=== PATIENT | male | born 1955 | race Caucasian/White ===

== ENCOUNTER 2020-11-01 16:43 | Emergency (ER) | payer OTHER ==
--- NOTE | 2020-11-01 17:03 | EDM.PDOC ---
<Martin Monterroso - Last Filed: 11/01/20 19:00> ED HPI GENERAL MEDICAL PROBLEM - General Chief Complaint: Respiratory Problem Stated Complaint[facility] Time Seen by Provider: 11/01/20 16:56 Source of Information: Reports: Patient History Limitations: Reports: No Limitations - History of Present Illness INITIAL COMMENTS - FREE TEXT/NARRATIVE: 65-year-old male with history of COPD, chronic smoker presents for shortness of breath, hemoptysis, dyspnea on exertion over the past 3 months. He also notes nonpainful bilateral lower extremity swelling over the past [address] chest noncontrast performed on 10/29 demonstrating pulmonary mass. Associated symptoms include cough. He denies fever, chills, weight loss, sweats, chest pain, abdominal pain, rectal bleeding. ROS: A 10-point review of systems, other than pertinent positives and negatives as stated per HPI, is otherwise negative Past medical history: No additional pertinent history Past Surgical history: No additional pertinent history Social history: No additional pertinent history Family history: No additional pertinent history PHYSICAL EXAM General: AOx4, GCS = 15, No distress HEENT: dry mucous membrane Neck: supple, no meningismus, no Kernig or Brudzinski Cardiac: S1S2 RRR Respiratory: diminished breath sound with diffuse rales Abdomen: Soft, nontender, no rebound or guarding, nondistended, no pulsatile mass. Back: nontender Musculoskeletal: NVI distally, bilaterally LE edema nontender. Neuro: No focal deficits, CN 2 - 12 WNL. - Related Data Allergies Allergy/AdvReac Type Severity Reaction Status Date / Time No Known Allergies Allergy Verified 11/01/20 17:04 Home Meds: Home Meds Albuterol Sulfate [Albuterol Sulfate HFA] 8.5 gram .ROUTE ASDIRECTED 11/01/20 [History] Budesonide/Formoterol Fumarate [Symbicort 80-4.5 MCG] 2 puff IH 11/01/20 [History] Doxycycline [Vibramycin] 100 mg PO BID #28 tab 11/01/20 [Rx] guaiFENesin [Mucinex] 1,200 mg .ROUTE DAILY 11/01/20 [History] ED ROS GENERAL - Review of Systems Review Of Systems: See Below (see dictation) ED EXAM, GENERAL - Physical Exam Exam: See Below (see dictation) #1 Interpretation EKG Interpretation Comments: Heart rate = 82 bpm, normal sinus rhythm, normal QRS interval, no STEMI. EKG and rhythm strip interpreted by me at 1656 Course - Re-Assessments/Exams Free Text/Narrative Re-Assessment/Exam: 11/01/20 19:00 Patient signed out to Dr. Huerta for disposition, pending CTA chest result. Departure - Departure Disposition: Home, Self-Care 01 Condition: Good Clinical Impression: Pneumonia Qualifiers: Pneumonia type: due to unspecified organism Laterality: unspecified laterality Lung location: unspecified part of lung Qualified Code(s): J18.9 - Pneumonia, unspecified organism Metastatic lung carcinoma Qualifiers: Laterality: unspecified laterality Qualified Code(s): C78.00 - Secondary malignant neoplasm of unspecified lung - Discharge Information Prescriptions: Doxycycline [Vibramycin] 100 mg PO BID #28 tab Instructions: Lung Cancer, Community-Acquired Pneumonia, Adult, [id number] Referrals: PCP,Not In Area [Primary Care Provider] - Forms: ED Department Discharge Additional Instructions: You were evaluated today on an emergent basis. At this time your work-up did reveal what appears to be lung cancer with a small pneumonia. I will be starting you on antibiotics and I want you to complete the course. As discussed I would like you to follow-up with the [place] clinic within the next 1 to 2 days so that you may be connected with an oncologist for further work-up. As we discussed if you have any worsening shortness of breath or start coughing up diana blood that is not streaked or you have any chest pain please return to the emergency department. [facility] - Primary Care [address] [place] [id number] [address] [id number] The patient is informed of any results of their evaluation and diagnostic workup and all questions are answered. They are given discharge instructions and return precautions. The patient is stable for discharge. The patient states they understand and agree with the plan and that they will return if their symptoms get worse or if they have any new concerns. The following information is given to patients seen in the emergency department who are being discharged to home. This information is to outline your options for follow-up care. We provide all patients seen in our emergency department with a follow-up referral. The need for follow-up, as well as the timing and circumstances, are variable depending upon the specifics of your emergency department visit. If you don't have a primary care physician on staff, we will provide you with a referral. We always advise you to contact your personal physician following an emergency department visit to inform them of the circumstance of the visit and for follow-up with them and/or the need for any referrals to a consulting specialist. The emergency department will also refer you to a specialist when appropriate. This referral assures that you have the opportunity for follow-up care with a specialist. All of these measure are taken in an effort to provide you with optimal care, which includes your follow-up. Under all circumstances we always encourage you to contact your private physician who remains a resource for coordinating your care. When calling for follow-up care, please make the office aware that this follow-up is from your recent emergency room visit. If for any reason you are refused follow-up, please contact the [facility] Emergency Department at and asked to speak to the emergency department charge nurse. <Jerrod Huerta - Last Filed: 11/02/20 03:28> ED HPI GENERAL MEDICAL PROBLEM - History of Present Illness INITIAL COMMENTS - FREE TEXT/NARRATIVE: Patient was signed out to me by Dr. Monterroso pending CT angiogram and communication with hospitalist who is aware of the patient at 7PM On my reevaluation at signout the patient had stable vital signs. I did have a discussion with the patient about what brought him into the hospital. The patient states that he has had a cough with blood-streaked sputum. He states that he had an outpatient CT at the [place] and was sent to the emergency department given the findings. He states that he has not had any diana hemoptysis, hematemesis, or worsening shortness of breath. He states that in addition to the blood-streaked sputum he has been experiencing lower extremity swelling over the past 3 weeks. He denies any history of DVT or PE and denies any chest pain. Labs reviewed with a CBC revealing a normal hemoglobin at 14.9 and normal WBC count at 10.93 with some mild thrombocytosis at 430. D-dimer is elevated at 0.77. Coags are within normal limits. Lactic acid was 0.9. CMP revealed hypoalbuminemia otherwise unremarkable. Covid was negative. Imaging reviewed with a chest x-ray showing bilateral airspace opacities. Venous duplex studies do not reveal any evidence of DVT in the lower extremities. The radiological images were viewed by myself along with reading the report from the radiologist. CT angiogram of the chest reveals no evidence of acute pulmonary embolism. There is a right upper lobe mass consistent with lung carcinoma. There is innumerable bilateral pulmonary nodules and extensive mediastinal adenopathy. There is a right perihilar airspace opacity which may reflect additional sites of mass or infection. No hepatic mass or suspicious osseous lesion. After imaging I did contact hospitalist Dr. Galaviz and discussed the case with her. At this time the patient does not meet inpatient criteria as he has normal vital signs no evidence of sepsis or postobstructive pneumonia and overall appears well. I had a discussion with the patient regarding his CT findings. He is aware that he has lung cancer which was found on prior CT. I did discuss with him at this time that he has no evidence of DVT and that his lower extremity swelling is likely secondary to hypoalbuminemia versus dependent edema. At this time I did have a discussion with him that he needed to follow-up with oncology for staging and treatment options. [facility] I encouraged the patient to call the clinic tomorrow to make an appointment to expedite follow-up. He is to return for any new or worsening symptoms such as diana hemoptysis, worsening shortness of breath, syncope or chest pain. I did start the patient on doxycycline for the possible right perihilar pneumonia. I did send his prescription to the pharmacy. He is to complete the full course. He was amenable to discharge at this time and had no further questions. DISPOSITION: The patient was discharged home in stable condition. The patient will follow up with [place] clinic within 1 to 2 days CONDITION: Fair PROCEDURES: None FINAL IMPRESSION(S)/DIAGNOSES: 1. Subacute lower extremity edema likely secondary to dependent edema versus hypoalbuminemia 2. Subacute blood tinged sputum likely secondary to lung carcinoma Jerrod Huerta M.D. Course - Vital Signs Last Recorded V/S: Last Vital Signs Temp 36.8 C 11/01/20 16:58 Pulse 86 11/01/20 20:55 Resp 16 11/01/20 20:55 BP 138/71 11/01/20 20:55 Pulse Ox 92 L 11/01/20 20:55 - Orders/Labs/Meds Orders: Active Orders 24 hr Category Date Time Status CULTURE BLOOD [BC] Stat Lab 11/01/20 17:52 Received CULTURE BLOOD [BC] Stat Lab 11/01/20 17:57 Received PROCALCITONIN [REF] Stat Lab 11/01/20 16:00 Received Blood Culture x2 Reflex Set [OM.PC] Stat Oth 11/01/20 18:22 Ordered Labs: Laboratory Tests 11/01/20 11/01/20 11/01/20 Range/Units 16:00 16:00 16:00 WBC 10.93 (4.0-11.0) K/uL RBC 4.97 (4.50-5.90) M/uL Hgb 14.9 (13.0-17.0) g/dL Hct 44.2 (38.0-50.0) % MCV 88.9 (80.0-98.0) fL MCH 30.0 (27.0-32.0) pg MCHC 33.7 (31.0-37.0) g/dL RDW Std Deviation 46.7 (28.0-62.0) fl RDW Coeff of Yaima 15 (11.0-15.0) % Plt Count 430 H (150-400) K/uL MPV 9.60 (7.40-12.00) fL Neut % (Auto) 74.9 (48.0-80.0) % Lymph % (Auto) 11.8 L (16.0-40.0) % Hays % (Auto) 12.4 (0.0-15.0) % Eos % (Auto) 0.7 (0.0-7.0) % Baso % (Auto) 0.2 (0.0-1.5) % Neut # (Auto) 8.2 H (1.4-5.7) K/uL Lymph # (Auto) 1.3 (0.6-2.4) K/uL [place] # (Auto) 1.4 H (0.0-0.8) K/uL Eos # (Auto) 0.1 (0.0-0.7) K/uL Baso # (Auto) 0.0 (0.0-0.1) K/uL Nucleated RBC % 0.0 /100WBC Nucleated RBCs # 0 K/uL INR 1.09 APTT 28.1 (18.6-31.3) SEC D-Dimer, Quantitative 0.77 H (0.0-0.50) mg/L FEU Lactate (0.20-2.00) mmol/L Sodium 139 (136-148) mmol/L Potassium 3.7 (3.5-5.1) mmol/L Chloride 103 (98-107) mmol/L Carbon Dioxide 22.9 (21.0-32.0) mmol/L BUN 5 L (7.0-18.0) mg/dL Creatinine 0.7 L (0.8-1.3) mg/dL Est Cr Clr Drug Dosing 113.55 mL/min Estimated GFR (MDRD) > 60.0 ml/min Glucose 100 (74-106) mg/dL Calcium 8.6 (8.5-10.1) mg/dL Phosphorus 3.1 (2.6-4.7) mg/dL Magnesium 1.9 (1.8-2.4) mg/dL Total Bilirubin 0.6 (0.2-1.0) mg/dL AST 17 (15-37) IU/L ALT 19 (14-63) IU/L Alkaline Phosphatase 73 (46-116) U/L Troponin I < 0.050 (0.000-0.056) ng/mL B-Natriuretic Peptide (<100) PG/ML Total Protein 7.0 (6.4-8.2) g/dL Albumin 2.5 L (3.4-5.0) g/dL Globulin 4.5 H (2.6-4.0) g/dL Albumin/Globulin Ratio 0.6 L (0.9-1.6) SARS-CoV-2 RNA ([facility]) (NEGATIVE) 11/01/20 11/01/20 11/01/20 Range/Units 16:00 17:45 18:24 WBC (4.0-11.0) K/uL RBC (4.50-5.90) M/uL Hgb (13.0-17.0) g/dL Hct (38.0-50.0) % MCV (80.0-98.0) fL MCH (27.0-32.0) pg MCHC (31.0-37.0) g/dL RDW Std Deviation (28.0-62.0) fl RDW Coeff of Yaima (11.0-15.0) % Plt Count (150-400) K/uL MPV (7.40-12.00) fL Neut % (Auto) (48.0-80.0) % Lymph % (Auto) (16.0-40.0) % [place] % (Auto) (0.0-15.0) % Eos % (Auto) (0.0-7.0) % Baso % (Auto) (0.0-1.5) % Neut # (Auto) (1.4-5.7) K/uL Lymph # (Auto) (0.6-2.4) K/uL [place]ays # (Auto) (0.0-0.8) K/uL Eos # (Auto) (0.0-0.7) K/uL Baso # (Auto) (0.0-0.1) K/uL Nucleated RBC % /100WBC Nucleated RBCs # K/uL INR APTT (18.6-31.3) SEC D-Dimer, Quantitative (0.0-0.50) mg/L FEU Lactate 0.9 (0.20-2.00) mmol/L Sodium (136-148) mmol/L Potassium (3.5-5.1) mmol/L Chloride (98-107) mmol/L Carbon Dioxide (21.0-32.0) mmol/L BUN (7.0-18.0) mg/dL Creatinine (0.8-1.3) mg/dL Est Cr Clr Drug Dosing mL/min Estimated GFR (MDRD) ml/min Glucose (74-106) mg/dL Calcium (8.5-10.1) mg/dL Phosphorus (2.6-4.7) mg/dL Magnesium (1.8-2.4) mg/dL Total Bilirubin (0.2-1.0) mg/dL AST (15-37) IU/L ALT (14-63) IU/L Alkaline Phosphatase (46-116) U/L Troponin I (0.000-0.056) ng/mL B-Natriuretic Peptide 63 (<100) PG/ML Total Protein (6.4-8.2) g/dL Albumin (3.4-5.0) g/dL Globulin (2.6-4.0) g/dL Albumin/Globulin Ratio (0.9-1.6) SARS-CoV-2 RNA ([facility]) NEGATIVE (NEGATIVE) Meds: Medications Discontinued Medications Generic Name Dose Route Start Last Admin Trade Name Freq PRN Reason Stop Dose Admin Albuterol/Ipratropium 3 ml 11/01/20 17:36 11/01/20 17:43 Duoneb 3.0-0.5 Mg/3 Ml NEB 11/01/20 17:37 3 ml ONETIME ONE Administration Lactated Ringer's 1,000 mls @ 999 mls/hr 11/01/20 17:33 11/01/20 17:43 Ringers, Lactated IV 11/01/20 18:33 999 mls/hr .BOLUS ONE Administration Piperacillin Sod/Tazobactam 100 mls @ 100 mls/hr 11/01/20 18:48 11/01/20 19:16 Sod 4.5 gm/ Sodium Chloride IV 11/01/20 19:47 100 mls/hr STAT STA Administration Vancomycin HCl 350 mls @ 350 mls/hr 11/01/20 19:00 11/01/20 19:52 Vancomycin 1.75 Gm/350 Ml IV 11/01/20 19:59 350 mls/hr ONETIME ONE Administration Vancomycin HCl 1.25 gm/ Sodium 250 mls @ 166.667 mls/hr 11/02/20 08:00 Chloride IV Q12H HAILEY Iopamidol 50 ml 11/01/20 19:07 11/01/20 19:08 Isovue Multipack-370 (76%) IVPUSH 11/01/20 19:08 50 ml ONETIME STA Administration Methylprednisolone Sodium Succinate 125 mg 11/01/20 17:33 11/01/20 17:43 Solu-Medrol IVPUSH 11/01/20 17:34 125 mg ONETIME ONE Administration Vancomycin HCl 1 dose 11/01/20 18:49 Pharmacy To Dose - Vancomycin .XX 11/01/20 18:50 STAT STA Departure - Departure Time of Disposition: 20:37 Condition: Fair - Discharge Information *PRESCRIPTION DRUG MONITORING PROGRAM REVIEWED*: No *COPY OF PRESCRIPTION DRUG MONITORING REPORT IN PATIENT BIBIA[place]: No Sepsis Event Note (ED) - Focused Exam Vital Signs: Vital Signs Temp Pulse Resp BP Pulse Ox 11/01/20 20:55 86 16 138/71 92 L 11/01/20 19:19 90 18 127/65 94 L 11/01/20 18:03 78 16 123/67 95 11/01/20 17:33 82 17 110/67 96 11/01/20 16:58 36.8 C 92 20 129/70 95
[2020-11-01] MEDS ORDERED: Lactated Ringers 1,000 ML IV ONE (17:33)
[2020-11-01] MEDS ORDERED: methylPREDNISolone Sodium Succinate 125 MG/2 ML SDV IVPUSH ONE (17:33)
[2020-11-01] MEDS ORDERED: Albuterol/Ipratropium 3.0-0.5 MG/3 ML Neb Soln NEB ONE (17:36)
--- NOTE | 2020-11-01 17:41 | CR ---
INDICATION: Chest pain TECHNIQUE: Chest 2 views. COMPARISON: None FINDINGS: Cardiovascular and mediastinum: Heart size and vasculature are normal in caliber and appearance. Mediastinum is within normal limits. Lungs and pleural spaces: Bilateral airspace opacities. No sign of pleural effusion. No pneumothorax. Bones and soft tissues: No significant findings. IMPRESSION: Bilateral airspace opacities. Findings reason for pneumonia. Dictated by Brock Bustamante MD @ Nov 01 2020 5:33PM Signed by Dr. Brock Bustamante @ Nov 01 2020 5:39PM
[2020-11-01 18:07] LABS: BLOOD UREA NITROGEN,BUN 5 mg/dL (7.0-18.0); CARBON DIOXIDE,CO2 22.9 mmol/L (21.0-32.0); CHLORIDE,CL 103 mmol/L (98-107); GLUCOSE RANDOM 100 mg/dL (74-106); POTASSIUM,K 3.7 mmol/L (3.5-5.1); SODIUM,NA 139 mmol/L (136-148)
--- NOTE | 2020-11-01 18:36 | US ---
CLINICAL HISTORY: 65-year-old with bilateral lower extremity swelling. TECHNIQUE: Grayscale, color Doppler and compression sonography of the bilateral lower extremity deep venous systems was performed. COMPARISON: None available. FINDINGS: There is no evidence for DVT in the bilateral lower extremities. Color flow, compressibility, and respiratory variation are seen in the bilateral lower extremity deep venous systems. There is no intraluminal echogenic material within these veins to suggest thrombus. IMPRESSION: 1. No evidence for DVT in the bilateral lower extremities. Dictated by Yosef Thurman MD @ Nov 01 2020 6:33PM Signed by Dr. Yosef Thurman @ Nov 01 2020 6:34PM
[2020-11-01] MEDS ORDERED: Piperacillin/Tazobactam 4.5 GM in Sodium Chloride 0.9% 100 ML IV STA (18:48)
[2020-11-01] MEDS ORDERED: VANCOmycin 1.75 GM/350 ML 350 ML IV ONE (19:00)
[2020-11-01] MEDS ORDERED: Iopamidol 755 MG/ML 500 ML Multipack Bottle IVPUSH STA (19:07)
--- NOTE | 2020-11-01 19:39 | CT ---
INDICATION: Apophysis, lung cancer TECHNIQUE: CT chest pulmonary PE protocol acquired with 50 cc Isovue 370 IV contrast. COMPARISON: Chest radiograph from earlier today FINDINGS: Cardiovascular structures: Normal vascular enhancement of the pulmonary arteries, no sign of pulmonary embolism. Heart size is normal. No sign of aneurysm in the thoracic aorta. Mediastinum and raymundo: 1.4 cm right thoracic inlet, 1.6cm right paratracheal, and 1.8 cm prevascular lymph nodes. Additional, smaller nodes are seen throughout the mediastinum. Conglomerate left hilar adenopathy. There is also increased soft tissue density in the right hilum extending into the mediastinum. Lungs: Soft tissue mass in the right upper lobe measuring 3.5 x 4.3 cm. Soft tissue density in the right hilum narrows the right mainstem bronchus. Innumerable pulmonary nodules throughout the lungs. Patchy airspace opacities in the right upper, middle, and lower lobe, centered around the right hilum. Pleura and pericardium: No effusions. Chest wall and axilla: No mass or adenopathy. Upper abdomen: Shotty periaortic lymph nodes. No hepatic mass. Bones: No suspicious osseous lesion. IMPRESSION: No pulmonary embolism. Right upper lobe mass consistent with lung carcinoma. Innumerable bilateral pulmonary nodules and extensive mediastinal adenopathy. Right perihilar airspace opacities may reflect additional sites of mass or infection. No hepatic mass or suspicious osseous lesion. Please note that all CT scans at this facility use dose modulation, iterative reconstruction, and/or weight-based dosing when appropriate to reduce radiation dose to as low as reasonably achievable. Dictated by Mehreen Key MD @ Nov 01 2020 7:17PM Signed by Dr. Mehreen Key @ Nov 01 2020 7:37PM
== END 2020-11-01 20:56 | disposition home or self-care (01) ==
LOC: MW.ED 16:43
DX: J18.9 Pneumonia, unspecified organism (principal); C34.90 Malignant neoplasm of unspecified part of unspecified bronchus or lung; F17.200 Nicotine dependence, unspecified, uncomplicated; J44.9 Chronic obstructive pulmonary disease, unspecified; Z79.899 Other long term (current) drug therapy
CPT/HCPCS: 36415; 71045; 71275; 80053; 83605; 83735; 83880; 84100; 84145; 84484; 85025; 85379; 85610; 85730; 87040; 87635; 93005; 93970; 96365; 96375; 99285; J2543; J2930; J3370; J7120; Q9967; 93010; J7620-GY; U0002

== ENCOUNTER 2021-04-16 08:32 | Emergency (ER) | payer OTHER ==
[2021-04-16 10:21] LABS: BLOOD UREA NITROGEN,BUN 5 mg/dL (7.0-18.0); CARBON DIOXIDE,CO2 27.6 mmol/L (21.0-32.0); CHLORIDE,CL 104 mmol/L (98-107); GLUCOSE RANDOM 110 mg/dL (74-106); POTASSIUM,K 3.8 mmol/L (3.5-5.1); SODIUM,NA 140 mmol/L (136-148)
--- NOTE | 2021-04-16 10:25 | CR ---
INDICATION: Dyspnea. Metastatic lung cancer. COMPARISON: 11/01/2020. TECHNIQUE: Chest single view. FINDINGS: Right chest port tip in the SVC. Cardiac silhouette size is top normal. Patient is rotated. Bilateral perihilar opacities, increased on the right compared to prior. Right upper lung opacities are increased as well. No pleural effusion or pneumothorax. IMPRESSION: Bilateral perihilar opacities, increased on the right. Right upper lung opacities, increased. Differential includes progression of metastatic lung cancer and/or superimposed infection/inflammation. Dictated by Brock Cardozo MD @ 04/16/2021 10:23:[address] Brock Cardozo @ Apr 16 2021 10:23AM
--- NOTE | 2021-04-16 11:47 | PCM.EKG ---
#1 Interpretation EKG Date: 04/16/21 Time: 09:11 Rhythm: NSR Rate (Beats/Min): 105 [place]: Normal P-Wave: Present QRS: Normal ST-T: Normal QT: Normal Comparison: No Change (11/01/20) EKG Interpretation Comments: Sinus Tachycardia
--- NOTE | 2021-04-16 11:53 | CT ---
INDICATION: Dyspnea. Evaluate for PE. Metastatic lung cancer. COMPARISON: 04/16/2021 chest x-ray, 02/26/2021 PET-CT. TECHNIQUE: CT angiography of the chest PE protocol. 100 cc IV Isovue-370. FINDINGS: No filling defect to indicate acute PE. Right chest port tip at the cavoatrial junction. Heart size is normal. No pericardial effusion. Imaged upper abdomen is unremarkable. Bone lesions better seen on prior PET-CT. Right upper lobe and right lower lobe perihilar lung masses are similar to prior examination. Patchy infiltrative masslike opacities in left lung are similar to prior. Multiple small nodular opacities bilaterally are similar to slightly increased from prior. Patchy ground-glass opacities in the anterior right lower lobe are new from prior. Trace right pleural effusion is new from prior. Mild basilar interlobular septal thickening is new from prior. Background of mild emphysema is again noted. IMPRESSION: 1. No evidence of acute PE. 2. Trace right pleural effusion and basilar interlobular septal thickening suggesting pulmonary edema, new from prior. 3. Patchy anterior right lower lobe opacities could be due to edema or infection/inflammation. 4. Bilateral lung masses are similar to prior exam consistent with history of metastatic lung cancer. 5. Numerous pulmonary nodules are similar to slightly increased from prior. Please note that all CT scans at this facility use dose modulation, iterative reconstruction, and/or weight-based dosing when appropriate to reduce radiation dose to as low as reasonably achievable. Dictated by Brock Cardozo MD @ 04/16/2021 12:58:[address] Brock Cardozo @ Apr 16 2021 12:58PM
[2021-04-16] MEDS ORDERED: Iopamidol 755 MG/ML 500 ML Multipack Bottle IVPUSH STA (15:29)
--- NOTE | 2021-04-16 16:14 | EDM.PDOC ---
ED HPI GENERAL MEDICAL PROBLEM - General Chief Complaint: Respiratory Problem Stated Complaint: SHORTNESS OF BREATH Time Seen by Provider: 04/16/21 08:44 - History of Present Illness INITIAL COMMENTS - FREE TEXT/NARRATIVE: CHIEF COMPLAINT(S): Shortness of breath HISTORY OF PRESENT ILLNESS: This is a 65-year-old man with a past medical history of stage IV lung cancer undergoing chemo radiation who presents to the emergency department with shortness of breath. The patient states that yesterday started to experience shortness of breath while at the oncology infusion center. He states that they told him to follow-up with the primary care clinic to get an x-ray to evaluate for fluid on his lungs. He states that he was unable to get to the clinic yesterday and he presented today and they sent him to the emergency department. He states that he has had a chronic cough which has not worsened. He denies any hemoptysis. States that he is shortness of breath but does not appear to be more short of breath than normal. He denies any lower extremity edema. He denies any recent travel, recent surgery or prior history of DVT or PE. He denies any fevers, chills or any other symptoms. REVIEW OF SYSTEMS: Constitutional: Denies fever, chills. Eyes: Denies eye pain Ears, Nose, Mouth, & Throat: Denies earache Cardiovascular: Denies chest pain Respiratory: Positive for shortness of breath and cough gastrointestinal: Denies Nausea, vomiting, diarrhea, hematochezia. Genitourinary: Denies hematuria Skin:Denies a rash MSK: Denies joint pain Neurological: Denies blurred vision Psychiatric: Denies depression PAST MEDICAL HISTORY: As per history of present illness and as reviewed below otherwise noncontributory. SURGICAL HISTORY: As per history of present illness and as reviewed below otherwise noncontributory. SOCIAL HISTORY: As per history of present illness and as reviewed below otherwise noncontributory. FAMILY HISTORY: As per history of present illness and as reviewed below otherwise noncontributory. EXAMINATION OF ORGAN SYSTEMS/BODY AREAS: Constitutional: Blood pressure was 116/72, heart rate 108, respiratory rate 18 with an oxygen saturation 95% on room air. Temperature 36.5 General: Well-appearing man who is in no acute distress Psychiatric: Appropriate mood and affect. Eyes: No scleral icterus or conjunctival erythema ENMT: Moist mucous membranes. No pharyngeal erythema Cardiovascular: Regular, rate, and rhythm. No gallops, murmurs, or rubs. Bilateral upper extremity pulses symmetric and intact. No peripheral edema. No JVD. Respiratory: Lungs clear to auscultation bilaterally. No wheezes, rales, or rhonchi. Patient speaking in full sentences. No increased work of breathing. Gastrointestinal: Soft, non-tender, non-distended. Normoactive bowel sounds Genitourinary: No suprapubic tenderness Musculoskeletal: Normal range of motion. Skin: No lesions or abrasions. Neurological: Alert, GCS 15 MEDICAL DECISION MAKING AND COURSE IN THE ED WITH INTERPRETATION/REVIEW OF DIAGNOSTIC STUDIES: This is a 65-year-old man with a past medical history of stage IV lung cancer undergoing chemoradiation who overall appears very well comes to the emergency department with a complaint of shortness of breath and concern for possible fluid in his lungs. At this time given the patient is tachycardic and given that he is a cancer patient he is at high risk for PE and obtain a CT angiogram to evaluate for pulmonary embolism. Will obtain CBC, CMP, troponin, EKG and an INR. Will place patient on cardiac monitoring and pulse oximetry. I do not believe any further treatment is indicated as he is not wheezing and has no other symptoms. EKG was unremarkable. Laboratory: CBC reveals a elevated WBC count of 12.26 with neutrophilic predominance without left shift. Decreased hemoglobin of 12.1 hematocrit of 36.2 otherwise unremarkable. INR is normal. CMP reveals hyperglycemia at 110, hypocalcemia at 8.4 and hypoalbuminemia at 2.3. The radiological images were viewed by myself along with reading the report from the radiologist. Chest x-ray reveals bilateral perihilar opacities increased on the right. Right upper lung opacities are increased. Differential includes progression of metastatic lung cancer and or superimposed inflammation or infection. CT angiogram of the chest does not reveal any evidence of acute pulmonary embolism. It does reveal a trace right pleural effusion and basilar interlobular septal thickening suggesting pulmonary edema which is new from prior. Patchy anterior right lower lobe opacities could be due to edema or infection. Bilateral lung masses are similar prior to exam consistent with history of metastatic lung cancer. There is numerous pulmonary nodules. After imaging we did contacted [facility] to speak with the patient's oncologist regarding further recommendations. There was a significant delay and it took multiple hours for the oncologist to contact us back from [facility]. We did speak with Dr. Treadwell who recommended he follow-up outpatient with his oncology team. He did not recommend admission at this time. I discussed this with the patient and he was amenable to this plan. He was given strict return precautions. The patient was amenable to discharge and had no further questions DISPOSITION: The patient was discharged home in stable condition. The patient will follow up with oncology as soon as possible CONDITION: Fair PROCEDURES: None FINAL IMPRESSION(S)/DIAGNOSES: 1. Acute on chronic dyspnea is likely secondary to new onset pleural effusion/pulmonary edema Jerrod Huerta M.D. - Related Data Allergies Allergy/AdvReac Type Severity Reaction Status Date / Time No Known Allergies Allergy Verified 04/16/21 09:16 Home Meds: Home Meds Albuterol Sulfate [Albuterol Sulfate HFA] 8.5 gram .ROUTE ASDIRECTED 11/01/20 [History] Budesonide/Formoterol Fumarate [Symbicort 80-4.5 MCG] 2 puff IH 11/01/20 [History] Doxycycline [Vibramycin] 100 mg PO BID #28 tab 11/01/20 [Rx] guaiFENesin [Mucinex] 1,200 mg .ROUTE DAILY 11/01/20 [History] Past Medical History HEENT History: Reports: None Cardiovascular History: Reports: None Respiratory History: Reports: COPD, Other (See Below) Other Respiratory History: metastatic lung adenocarcinoma, [id number] Gastrointestinal History: Reports: None Genitourinary History: Reports: None Musculoskeletal History: Reports: None Neurological History: Reports: None Psychiatric History: Reports: None Endocrine/Metabolic History: Reports: None Hematologic History: Reports: Other (See Below) Other Hematologic History: Vitamin D Deficency Immunologic History: Reports: None Oncologic (Cancer) History: Reports: None Dermatologic History: Reports: None - Infectious Disease History Infectious Disease History: Reports: Chicken Pox, Measles, Mumps - Past Surgical History Head Surgeries/Procedures: Reports: None HEENT Surgical History: Reports: None Cardiovascular Surgical History: Reports: None Respiratory Surgical History: Reports: None GI Surgical History: Reports: None Male Surgical History: Reports: None Endocrine Surgical History: Reports: None Neurological Surgical History: Reports: None Musculoskeletal Surgical History: Reports: None Oncologic Surgical History: Reports: None Dermatological Surgical History: Reports: None Social & Family History - Family History Family Medical History: No Pertinent Family History - Tobacco Use Tobacco Use Status *Q: Current Every Day Tobacco User Years of Tobacco use: 50 Packs/Tins Daily: 1 - Recreational Drug Use Recreational Drug Use: No ED ROS GENERAL - Review of Systems Review Of Systems: See Below ED EXAM, GENERAL - Physical Exam Exam: See Below Course - Vital Signs Last Recorded V/S: Last Vital Signs Temp 36.7 C 04/16/21 16:20 Pulse 104 H 04/16/21 16:44 Resp 20 04/16/21 16:44 BP 121/66 04/16/21 16:44 Pulse Ox 95 04/16/21 16:44 - Orders/Labs/Meds Labs: Laboratory Tests 04/16/21 04/16/21 04/16/21 Range/Units 09:34 09:34 09:34 WBC 12.26 H (4.0-11.0) K/uL RBC 3.92 L (4.50-5.90) M/uL Hgb 12.1 L (13.0-17.0) g/dL Hct 36.2 L (38.0-50.0) % MCV 92.3 (80.0-98.0) fL MCH 30.9 (27.0-32.0) pg MCHC 33.4 (31.0-37.0) g/dL RDW Std Deviation 58.2 (28.0-62.0) fl RDW Coeff of Yaima 17 H (11.0-15.0) % Plt Count 368 (150-400) K/uL MPV 8.90 (7.40-12.00) fL Neut % (Auto) 82.2 H (48.0-80.0) % Lymph % (Auto) 7.0 L (16.0-40.0) % [place] % (Auto) 10.4 (0.0-15.0) % Eos % (Auto) 0.2 (0.0-7.0) % Baso % (Auto) 0.2 (0.0-1.5) % Neut # (Auto) 10.1 H (1.4-5.7) K/uL Lymph # (Auto) 0.9 (0.6-2.4) K/uL [place] # (Auto) 1.3 H (0.0-0.8) K/uL Eos # (Auto) 0.0 (0.0-0.7) K/uL Baso # (Auto) 0.0 (0.0-0.1) K/uL Nucleated RBC % 0.0 /100WBC Nucleated RBCs # 0 K/uL INR 1.09 Sodium 140 (136-148) mmol/L Potassium 3.8 (3.5-5.1) mmol/L Chloride 104 (98-107) mmol/L Carbon Dioxide 27.6 (21.0-32.0) mmol/L BUN 5 L (7.0-18.0) mg/dL Creatinine 0.8 (0.8-1.3) mg/dL Est Cr Clr Drug Dosing TNP Estimated GFR (MDRD) > 60.0 ml/min Glucose 110 H (74-106) mg/dL Calcium 8.4 L (8.5-10.1) mg/dL Magnesium 1.8 (1.8-2.4) mg/dL Total Bilirubin 0.3 (0.2-1.0) mg/dL AST 16 (15-37) IU/L ALT 12 L (14-63) IU/L Alkaline Phosphatase 78 (46-116) U/L Troponin I < 0.050 (0.000-0.056) ng/mL B-Natriuretic Peptide (<100) PG/ML Total Protein 6.6 (6.4-8.2) g/dL Albumin 2.3 L (3.4-5.0) g/dL Globulin 4.3 H (2.6-4.0) g/dL Albumin/Globulin Ratio 0.5 L (0.9-1.6) 04/16/21 Range/Units 09:34 WBC (4.0-11.0) K/uL RBC (4.50-5.90) M/uL Hgb (13.0-17.0) g/dL Hct (38.0-50.0) % MCV (80.0-98.0) fL MCH (27.0-32.0) pg MCHC (31.0-37.0) g/dL RDW Std Deviation (28.0-62.0) fl RDW Coeff of Yaima (11.0-15.0) % Plt Count (150-400) K/uL MPV (7.40-12.00) fL Neut % (Auto) (48.0-80.0) % Lymph % (Auto) (16.0-40.0) % [place] % (Auto) (0.0-15.0) % Eos % (Auto) (0.0-7.0) % Baso % (Auto) (0.0-1.5) % Neut # (Auto) (1.4-5.7) K/uL Lymph # (Auto) (0.6-2.4) K/uL [place] # (Auto) (0.0-0.8) K/uL Eos # (Auto) (0.0-0.7) K/uL Baso # (Auto) (0.0-0.1) K/uL Nucleated RBC % /100WBC Nucleated RBCs # K/uL INR Sodium (136-148) mmol/L Potassium (3.5-5.1) mmol/L Chloride (98-107) mmol/L Carbon Dioxide (21.0-32.0) mmol/L BUN (7.0-18.0) mg/dL Creatinine (0.8-1.3) mg/dL Est Cr Clr Drug Dosing Estimated GFR (MDRD) ml/min Glucose (74-106) mg/dL Calcium (8.5-10.1) mg/dL Magnesium (1.8-2.4) mg/dL Total Bilirubin (0.2-1.0) mg/dL AST (15-37) IU/L ALT (14-63) IU/L Alkaline Phosphatase (46-116) U/L Troponin I (0.000-0.056) ng/mL B-Natriuretic Peptide 92 (<100) PG/ML Total Protein (6.4-8.2) g/dL Albumin (3.4-5.0) g/dL Globulin (2.6-4.0) g/dL Albumin/Globulin Ratio (0.9-1.6) Meds: Medications Discontinued Medications Generic Name Dose Route Start Last Admin Trade Name Freq PRN Reason Stop Dose Admin Iopamidol 100 ml 04/16/21 15:29 04/16/21 15:30 Iopamidol 755 Mg/Ml 500 Ml Multipack Bottle IVPUSH 04/16/21 15:30 100 ml ONETIME STA Administration Departure - Departure Time of Disposition: 16:13 Disposition: Home, Self-Care 01 Condition: Fair Clinical Impression: Pleural effusion, Metastatic lung carcinoma - Discharge Information *PRESCRIPTION DRUG MONITORING PROGRAM REVIEWED*: No *COPY OF PRESCRIPTION DRUG MONITORING REPORT IN PATIENT BIBIANA: No Instructions: Pleural Effusion Referrals: Willis Silva MD [Primary Care Provider] - Forms: ED Department Discharge Additional Instructions: You were evaluated today on an emergent basis. At this time and discussion with oncologist Dr. Treadwell he recommends outpatient follow-up. I recommend you contact your oncologist as soon as you leave to set up an appointment or keep the appointment on the . If you have any worsening shortness of breath, coughing up blood, worsening cough, fever, chest pain I would like you to return to the emergency department. [facility] - Primary Care [address] [place] [address] [place] [address] The patient is informed of any results of their evaluation and diagnostic workup and all questions are answered. They are given discharge instructions and return precautions. The patient is stable for discharge. The patient states they understand and agree with the plan and that they will return if their symptoms get worse or if they have any new concerns. The following information is given to patients seen in the emergency department who are being discharged to home. This information is to outline your options for follow-up care. We provide all patients seen in our emergency department with a follow-up referral. The need for follow-up, as well as the timing and circumstances, are variable depending upon the specifics of your emergency department visit. If you don't have a primary care physician on staff, we will provide you with a referral. We always advise you to contact your personal physician following an emergency department visit to inform them of the circumstance of the visit and for follow-up with them and/or the need for any referrals to a consulting specialist. The emergency department will also refer you to a specialist when appropriate. This referral assures that you have the opportunity for follow-up care with a specialist. All of these measure are taken in an effort to provide you with optimal care, which includes your follow-up. Under all circumstances we always encourage you to contact your private physician who remains a resource for coordinating your care. When calling for follow-up care, please make the office aware that this follow-up is from your recent emergency room visit. If for any reason you are refused follow-up, please contact the [facility] Emergency Department at and asked to speak to the emergency department charge nurse.
== END 2021-04-16 16:27 | disposition home or self-care (01) ==
LOC: MW.ED 08:32
DX: J90 Pleural effusion, not elsewhere classified (principal); C34.90 Malignant neoplasm of unspecified part of unspecified bronchus or lung; J44.9 Chronic obstructive pulmonary disease, unspecified; D72.829 Elevated white blood cell count, unspecified; Z72.0 Tobacco use; Z79.899 Other long term (current) drug therapy
CPT/HCPCS: 36415; 71045; 71275; 80053; 83735; 83880; 84484; 85025; 85610; 93005; 99285; Q9967; 93010; 99284

== ENCOUNTER 2021-05-08 10:35 | Emergency (ER) | payer OTHER ==
--- NOTE | 2021-05-08 10:48 | EDM.PDOC ---
ED HPI GENERAL MEDICAL PROBLEM - General Stated Complaint: SHORTNESS OF BREATH, BOTH ANKELS SWOLLEN Time Seen by Provider: 05/08/21 10:42 Source of Information: Reports: Patient History Limitations: Reports: No Limitations - History of Present Illness INITIAL COMMENTS - FREE TEXT/NARRATIVE: HISTORY AND PHYSICAL: History of present illness: Patient is a 65-year-old male with a past medical history of stage IV metastatic lung cancer undergoing chemoradiation. Patient was seen today at oncology for routine lab work. He told staff that he has been feeling unwell for the past week. Patient complains of increased shortness of breath, lower extremity swelling, and chronic cough. Patient states due to his lung cancer he does have chronic shortness of breath and cough. States the cough is no worse than usual. Does have a slight increase in his shortness of breath. Patient denies any fever, chills, headache, change in vision, syncope or near syncope. Denies any chest pain, back pain, abdominal pain, nausea, vomiting, diarrhea, constipation or dysuria. Has not noted any blood in urine or stool. Patient has been eating and drinking appropriately. Patient continues to be 1ppd smoker (50 yr history). Review of systems: As per history of present illness and below otherwise all systems reviewed and negative. Past medical history: As per history of present illness and as reviewed below otherwise noncontributory. Surgical history: As per history of present illness and as reviewed below otherwise noncontributory. Social history: See social history for further information Family history: As per history of present illness and as reviewed below otherwise noncontributory. Physical exam: General: Well developed and well nourished 65-year-old male. Alert and orientated x 3. Nontoxic in appearance and in no acute distress. Vital signs are stable and have been reviewed by me. Nursing notes were reviewed. HEENT: Atraumatic, normocephalic, pupils equal and reactive bilaterally, ne gative for conjunctival pallor or scleral icterus, mucous membranes moist, TMs normal bilaterally, throat clear, neck supple, nontender, trachea midline. No drooling or trismus noted. No meningeal signs. No hot potato voice noted. Lungs: Clear to auscultation bilaterally. No wheezes, rales, or rhonchi. Chest nontender. Normal work of breathing, no accessory muscles used. Heart: S1S2, regular rate and rhythm without overt murmur, gallops, or rubs. No JVD. No peripheral edema Abdomen: Soft, nondistended, nontender. Normoactive bowel sounds. Negative for masses or costovertebral tenderness. Skin: Intact, warm, dry. No lesions or rashes noted. Hematologic: No petechiae or purpra. Mucosa appropriate color and normal nail bed color and refill. Extremities: Atraumatic, moves all extremities per self without difficulty or deficits, negative for cords or calf pain. Neurovascular unremarkable. Neuro: Awake, alert, oriented. Cranial nerves II through XII unremarkable. Cerebellum unremarkable. Motor and sensory unremarkable throughout. Exam nonfocal. Psychiatric: Mood and affect are appropriate. Normal thought process. Answering questions appropriately. Please note that the patient was seen and evaluated during the 2019 SARS-CoV-2 novel coronavirus pandemic period. Community viral transmission is ongoing at time of this encounter and the emergency department is operating under pandemic response procedures. Medical Decision Makin04/16/21: CT angiogram of the chest does not reveal any evidence of acute PE. There is trace right pleural effusion and basilar intralobular septal thickening suggesting pulmonary edema which is new from prior study. Patchy anterior right lower lobe opacities could be due to edema or infection. Bilateral lung masses are similar to prior exam consistent with history of metastatic lung cancer. Numerous pulmonary nodules are noted. 04/30/21 NM/PET CT to [place]: Progressive increase in the metabolic activity within the vast majority of pulmonary nodes/confluent masses within both lungs with new and more metabolically active intrapulmonary nodules. Stable to decreased activity within a few mediastinal lymph nodes. Resolution of the previously reported left retrocrural lymph node. General increase in the metabolic activity within the scattered skeletal metastasis as described above. Nonspecific focal activity within the right hemicolon/cecum. Colonoscopy may be helpful for further evaluation. Patient did have labs drawn at 1020 in oncology. A CBC was ordered which shows a leukocytosis of 12.47 and H&H which is within normal limits. CMP shows no significant findings. Additional lab work was added onto the blood that was already drawn. He does meet sepsis criteria, therefore I have added a lactate and blood cultures x2. Negative troponin, BNP is 72. CXR shows no significant change from 04/16/2021. Right-sided volume loss, dense hilar opacity bilaterally and numerous pulmonary nodules. Patient's vital signs are stable. Reviewed case with Dr Rosa about this case. Will put patient on zpak and steroids for coverage. VSS. I have talked with the patient about today's findings, in addition to providing specific details for plan of care. Patient states that they have been trying to get in at the [facility] so he can have oxygen at home for comfort purposes. The states any time they go to the [facility] for an appointment they recommend he comes to the emergency room for evaluation instead. I did discuss that oxygen may not be covered by insurance if prescribed through the emergency room. We will contact the [facility] to see if we can arrange this. Reassessment at the time of disposition demonstrates that the patient is in no acute distress. The patient is stable for discharge, counseling was provided and we discussed in great detail signs and symptoms that would prompt them to return to the Emergency Department. Medication, follow up and supportive care measures were reviewed and discussed. Voices understanding and is agreeable to plan of care. Denies any further questions or concerns at this time. Diagnostics: CMP, troponin, TSH, lactate, BC x 2, lactate, BNP Therapeutics: Prednisone Prescription: Prednisone, Zpak Impression: Dyspnea History of lung cancer Plan: 1. You were evaluated today on an emergent basis. Your lab work and chest x-ray are unchanged. Due to your symptoms will give you a short course of steroids and cover for atypical pneumonia. 2. You can alternate Tylenol and ibuprofen as needed for pain and fever management. 3. We encourage you to follow up with your primary care provider and/or Oncologist in the next few days for re-evaluation and further care/management. 4. If your symptoms should worsen, new symptoms develop or any of the signs and symptoms we discussed should arise please return to the emergency room or call 911 (if needed). Definitive disposition and diagnosis as appropriate pending reevaluation and review of above. Duration: Week(s): - Related Data Allergies Allergy/AdvReac Type Severity Reaction Status Date / Time No Known Allergies Allergy Verified 05/08/21 10:58 Home Meds: Home Meds Albuterol Sulfate [Albuterol Sulfate HFA] 1 - 2 puff INH Q4H PRN 11/01/20 [History] Budesonide/Formoterol Fumarate [Symbicort 80-4.5 MCG] 2 puff IH BID 11/01/20 [History] guaiFENesin [Mucinex] 200 mg PO TID PRN 11/01/20 [History] Azithromycin [Zithromax] 1 dose PO DAILY 5 Days #6 tab 05/08/21 [Rx] Betamethasone/Propylene Glyc [Betamethasone DP Aug 0.05%] 1 dose TOP BID 05/08/21 [History] Folic Acid 1 tab PO DAILY 05/08/21 [History] Ondansetron [Zofran Odt] 1 tab PO Q8H PRN 05/08/21 [History] Prochlorperazine Maleate [Compazine] 1 tab PO TID PRN 05/08/21 [History] buPROPion [Wellbutrin SR] 1 tab PO BID 05/08/21 [History] predniSONE [Prednisone] 40 mg PO DAILY 4 Days #8 tablet 05/08/21 [Rx] Past Medical History HEENT History: Reports: None Cardiovascular History: Reports: None Respiratory History: Reports: COPD, Other (See Below) Other Respiratory History: metastatic lung adenocarcinoma, [id number] Gastrointestinal History: Reports: None Genitourinary History: Reports: None Musculoskeletal History: Reports: None Neurological History: Reports: None Psychiatric History: Reports: None Endocrine/Metabolic History: Reports: None Hematologic History: Reports: Other (See Below) Other Hematologic History: Vitamin D Deficency Immunologic History: Reports: None Oncologic (Cancer) History: Reports: None Dermatologic History: Reports: None - Infectious Disease History Infectious Disease History: Reports: Chicken Pox, Measles, Mumps - Past Surgical History Head Surgeries/Procedures: Reports: None HEENT Surgical History: Reports: None Cardiovascular Surgical History: Reports: None Respiratory Surgical History: Reports: None GI Surgical History: Reports: None Male Surgical History: Reports: None Endocrine Surgical History: Reports: None Neurological Surgical History: Reports: None Musculoskeletal Surgical History: Reports: None Oncologic Surgical History: Reports: None Dermatological Surgical History: Reports: None Social & Family History - Family History Family Medical History: No Pertinent Family History ED ROS GENERAL - Review of Systems Review Of Systems: Comprehensive ROS is negative, except as noted in HPI. ED EXAM, GENERAL - Physical Exam Exam: See Below (See dictation) Course - Vital Signs Last Recorded V/S: Last Vital Signs Temp 98.0 F 05/08/21 13:10 Pulse 103 H 05/08/21 13:10 Resp 20 09/08/21 13:10 BP 101/63 05/08/21 13:10 Pulse Ox 95 05/08/21 13:10 - Orders/Labs/Meds Orders: Active Orders 24 hr Category Date Time Status CULTURE BLOOD [BC] Stat Lab 05/08/21 11:20 Received CULTURE BLOOD [BC] Stat Lab 05/08/21 11:26 Results Sodium Chloride 0.9% [Saline Flush] Med 05/08/21 10:50 Active 10 ml FLUSH ASDIRECTED PRN Sodium Chloride 0.9% [Saline Flush] Med 05/08/21 10:50 Active 2.5 ml FLUSH ASDIRECTED PRN Blood Culture x2 Reflex Set [OM.PC] Stat Oth 05/08/21 11:12 Ordered Saline Lock Insert [OM.PC] Stat Oth 05/08/21 10:50 Ordered Medication Orders Sodium Chloride (Sodium Chloride 0.9% 10 Ml Syringe) 10 ml FLUSH ASDIRECTED PRN PRN Reason: Keep Vein Open Last Admin: 05/08/21 11:22 Dose: 10 ml Documented by: DONI Sodium Chloride (Sodium Chloride 0.9% 2.5 Ml Syringe) 2.5 ml FLUSH ASDIRECTED PRN PRN Reason: Keep Vein Open Last Admin: 05/08/21 11:22 Dose: 2.5 ml Documented by: DONI Labs: Laboratory Tests 05/08/21 05/08/21 05/08/21 Range/Units 10:20 10:20 11:20 Lactic Acid 1.8 (0.4-2.0) mmol/L Magnesium 2.0 (1.8-2.4) mg/dL Troponin I < 0.050 (0.000-0.056) ng/mL B-Natriuretic Peptide 73 (<100) PG/ML SARS-CoV-2 RNA ([facility]) (NEGATIVE) 05/08/21 Range/Units 11:40 Lactic Acid (0.4-2.0) mmol/L Magnesium (1.8-2.4) mg/dL Troponin I (0.000-0.056) ng/mL B-Natriuretic Peptide (<100) PG/ML SARS-CoV-2 RNA ([facility]) NEGATIVE (NEGATIVE) Meds: Medications Generic Name Dose Route Start Last Admin Trade Name Freq PRN Reason Stop Dose Admin Sodium Chloride 10 ml 05/08/21 10:50 05/08/21 11:22 Sodium Chloride 0.9% 10 Ml Syringe FLUSH 10 ml ASDIRECTED PRN Administration Keep Vein Open Sodium Chloride 2.5 ml 05/08/21 10:50 05/08/21 11:22 Sodium Chloride 0.9% 2.5 Ml Syringe FLUSH 2.5 ml ASDIRECTED PRN Administration Keep Vein Open Discontinued Medications Generic Name Dose Route Start Last Admin Trade Name Steve PRN Reason Stop Dose Admin Prednisone 40 mg 05/08/21 13:04 05/08/21 13:09 Prednisone 20 Mg Tab PO 05/08/21 13:05 40 mg NOW STA Administration Departure - Departure Time of Disposition: 13:10 Disposition: Home, Self-Care 01 Clinical Impression: Dyspnea Qualifiers: Dyspnea type: shortness of breath Qualified Code(s): R06.02 - Shortness of breath Metastatic lung carcinoma Qualifiers: Laterality: unspecified laterality Qualified Code(s): C78.00 - Secondary malignant neoplasm of unspecified lung - Discharge Information Prescriptions: predniSONE [Prednisone] 40 mg PO DAILY 4 Days #8 tablet Azithromycin [Zithromax] 1 dose PO DAILY 5 Days #6 tab Instructions: Shortness of Breath, Adult, [id number] Referrals: Willis Silva MD [Primary Care Provider] - Forms: ED Department Discharge Additional Instructions: The following information is given to patients seen in the emergency department who are being discharged to home. This information is to outline your options for follow-up care. We provide all patients seen in our emergency department with a follow-up referral. The need for follow-up, as well as the timing and circumstances, are variable depending upon the specifics of your emergency department visit. If you don't have a primary care physician on staff, we will provide you with a referral. We always advise you to contact your personal physician following an emergency department visit to inform them of the circumstance of the visit and for follow-up with them and/or the need for any referrals to a consulting specialist. The emergency department will also refer you to a specialist when appropriate. This referral assures that you have the opportunity for follow-up care with a specialist. All of these measure are taken in an effort to provide you with optimal care, which includes your follow-up. Under all circumstances we always encourage you to contact your private physician who remains a resource for coordinating your care. When calling for follow-up care, please make the office aware that this follow-up is from your recent emergency room visit. If for any reason you are refused follow-up, please contact the [facility] Emergency Department at and asked to speak to the emergency department charge nurse. [facility] [address] [place] [address] [facility] [address] [place] [address] Thank you for choosing the [facility] emergency department in [place] for your medical needs today. It was a pleasure caring for you. Today you were seen in the emergency department for shortness of breath. 1. You were evaluated today on an emergent basis. Your lab work and chest x-ray are unchanged. Due to your symptoms will give you a short course of steroids and cover for atypical pneumonia. 2. You can alternate Tylenol and ibuprofen as needed for pain and fever management. 3. We encourage you to follow up with your primary care provider and/or Oncologist in the next few days for re-evaluation and further care/management. 4. If your symptoms should worsen, new symptoms develop or any of the signs and symptoms we discussed should arise please return to the emergency room or call 911 (if needed). Sepsis Event Note (ED) - Focused Exam Vital Signs: Vital Signs Temp Pulse Resp BP Pulse Ox 05/08/21 13:10 98.0 F 103 H 20 101/63 95 05/08/21 10:55 97.8 F 107 H 28 H 97/64 95 - My Orders Last 24 Hours: My Active Orders 05/08/21 10:50 Sodium Chloride 0.9% [Saline Flush] 10 ml FLUSH ASDIRECTED PRN Sodium Chloride 0.9% [Saline Flush] 2.5 ml FLUSH ASDIRECTED PRN Saline Lock Insert [OM.PC] Stat 05/08/21 11:12 Blood Culture x2 Reflex Set [OM.PC] Stat 05/08/21 11:20 CULTURE BLOOD [BC] Stat 05/08/21 11:26 CULTURE BLOOD [BC] Stat - Assessment/Plan Last 24 Hours: My Active Orders 05/08/21 10:50 Sodium Chloride 0.9% [Saline Flush] 10 ml FLUSH ASDIRECTED PRN Sodium Chloride 0.9% [Saline Flush] 2.5 ml FLUSH ASDIRECTED PRN Saline Lock Insert [OM.PC] Stat 05/08/21 11:12 Blood Culture x2 Reflex Set [OM.PC] Stat 05/08/21 11:20 CULTURE BLOOD [BC] Stat 05/08/21 11:26 CULTURE BLOOD [BC] Stat
[2021-05-08] MEDS ORDERED: Sodium Chloride 0.9% 10 ML Syringe FLUSH PRN (10:50)
[2021-05-08] MEDS ORDERED: Sodium Chloride 0.9% 2.5 ML Syringe FLUSH PRN (10:50)
--- NOTE | 2021-05-08 11:08 | PCM.EKG ---
#1 Interpretation EKG Date: 05/08/21 Time: 11:03 Rhythm: NSR Rate (Beats/Min): 106 [place]: Normal P-Wave: Present QRS: Normal ST-T: Normal QT: Normal AL/PQ Interval: 128 EKG Interpretation Comments: no ischemic changes
--- NOTE | 2021-05-08 12:18 | CR ---
INDICATION: Pain and SOB. TECHNIQUE: Upright portable AP image of the chest. COMPARISON: 04/16/2021. FINDINGS: No significant change. Right-sided volume loss with dense hilar opacities and numerous pulmonary nodules. No obvious acute infiltrate. No pleural fusion. Heart size grossly normal. Pulmonary veins grossly normal in caliber. Port-A-Cath. No significant bony abnormality. IMPRESSION: No significant change from 04/16/2021. Right-sided volume loss, dense hilar opacity bilaterally and numerous pulmonary nodules. Dictated by Josue Newsome MD @ 05/08/2021 12:17:01 PM (Electronically Signed)
[2021-05-08] MEDS ORDERED: predniSONE 20 MG Tab PO STA (13:04)
== END 2021-05-08 15:20 | disposition home or self-care (01) ==
LOC: MW.ED 10:35
DX: R06.02 Shortness of breath (principal); C78.00 Secondary malignant neoplasm of unspecified lung; J44.9 Chronic obstructive pulmonary disease, unspecified; Z85.118 Personal history of other malignant neoplasm of bronchus and lung; Z20.822 Contact with and (suspected) exposure to COVID-19
CPT/HCPCS: 36415; 71045; 83605; 83735; 83880; 84484; 87040; 87635; 93005; 99285; A9270; J1642; U0002

== ENCOUNTER 2021-05-21 10:27 | Emergency (ER) | payer OTHER ==
--- NOTE | 2021-05-21 10:48 | EDM.PDOC ---
ED HPI GENERAL MEDICAL PROBLEM - General Chief Complaint: Respiratory Problem Stated Complaint: STAGE 4 LUNG CANCER Time Seen by Provider: 05/21/21 10:33 Source of Information: Reports: Patient History Limitations: Reports: No Limitations - History of Present Illness INITIAL COMMENTS - FREE TEXT/NARRATIVE: Patient is a 65-year-old male history of lung cancer currently on chemo presents today for fatigue. Patient states he had chemo last Thursday and since then has had nausea vomiting diarrhea. His also states he has little bit of a hoarse voice but he feels he is speaking clear able to swallow and breathe without issue. He denies any other complaints. - Related Data Allergies Allergy/AdvReac Type Severity Reaction Status Date / Time No Known Allergies Allergy Verified 05/21/21 10:34 Home Meds: Home Meds Albuterol Sulfate [Albuterol Sulfate HFA] 1 - 2 puff INH Q4H PRN 11/01/20 [His tory] Budesonide/Formoterol Fumarate [Symbicort 80-4.5 MCG] 2 puff IH BID 11/01/20 [History] guaiFENesin [Mucinex] 200 mg PO TID PRN 11/01/20 [History] Betamethasone/Propylene Glyc [Betamethasone DP Aug 0.05%] 1 dose TOP BID 05/08/21 [History] Folic Acid 1 tab PO DAILY 05/08/21 [History] Ondansetron [Zofran Odt] 1 tab PO Q8H PRN 05/08/21 [History] Prochlorperazine Maleate [Compazine] 1 tab PO TID PRN 05/08/21 [History] buPROPion [Wellbutrin SR] 1 tab PO BID 05/08/21 [History] predniSONE [Prednisone] 40 mg PO DAILY 4 Days #8 tablet 05/08/21 [Rx] Past Medical History HEENT History: Reports: None Cardiovascular History: Reports: None Respiratory History: Reports: COPD, Other (See Below) Other Respiratory History: metastatic lung adenocarcinoma, [id number] Gastrointestinal History: Reports: None Genitourinary History: Reports: None Musculoskeletal History: Reports: None Neurological History: Reports: None Psychiatric History: Reports: None Endocrine/Metabolic History: Reports: None Hematologic History: Reports: Other (See Below) Other Hematologic History: Vitamin D Deficency Immunologic History: Reports: None Oncologic (Cancer) History: Reports: None Dermatologic History: Reports: Eczema - Infectious Disease History Infectious Disease History: Reports: Chicken Pox, Measles, Mumps - Past Surgical History Head Surgeries/Procedures: Reports: None HEENT Surgical History: Reports: None Cardiovascular Surgical History: Reports: None Respiratory Surgical History: Reports: None GI Surgical History: Reports: None Male Surgical History: Reports: None Endocrine Surgical History: Reports: None Neurological Surgical History: Reports: None Musculoskeletal Surgical History: Reports: None Oncologic Surgical History: Reports: None Dermatological Surgical History: Reports: None Social & Family History - Family History Family Medical History: No Pertinent Family History - Tobacco Use Tobacco Use Status *Q: Current Every Day Tobacco User Years of Tobacco use: 45 Packs/Tins Daily: 1 - Caffeine Use Caffeine Use: Reports: None - Recreational Drug Use Recreational Drug Use: No ED ROS GENERAL - Review of Systems Review Of Systems: See Below Constitutional: Reports: No Symptoms HEENT: Reports: No Symptoms Respiratory: Reports: Cough Cardiovascular: Reports: No Symptoms Endocrine: Reports: No Symptoms GI/Abdominal: Reports: Diarrhea : Reports: No Symptoms Musculoskeletal: Reports: No Symptoms Skin: Reports: No Symptoms Neurological: Reports: No Symptoms Psychiatric: Reports: No Symptoms Hematologic/Lymphatic: Reports: No Symptoms Immunologic: Reports: No Symptoms ED EXAM, GENERAL - Physical Exam Exam: See Below Exam Limited By: No Limitations General Appearance: Alert, WD/WN, No Apparent Distress Eye Exam: Bilateral Eye: EOMI, PERRL Head: Atraumatic Neck: Normal Inspection, Supple, Non-Tender Respiratory/Chest: No Respiratory Distress, Lungs Clear, Normal Breath Sounds Cardiovascular: Normal Peripheral Pulses, Regular Rate, Rhythm GI/Abdominal: Normal Bowel Sounds, Soft, Non-Tender Extremities: Normal Inspection, Normal Range of Motion Neurological: Alert, Oriented, Normal Cognition, Normal Gait #1 Interpretation EKG Date: 05/21/21 Time: 10:29 Rhythm: Other (sinus tach) Rate (Beats/Min): 112 ST-T: Normal Course - Vital Signs Last Recorded V/S: Last Vital Signs Temp 98.2 F 05/21/21 12:06 Pulse 84 05/21/21 13:00 Resp 18 05/21/21 13:00 BP 116/73 05/21/21 13:00 Pulse Ox 97 05/21/21 13:00 - Orders/Labs/Meds Labs: Laboratory Tests 05/21/21 05/21/21 Range/Units 10:55 10:55 WBC 4.76 (4.0-11.0) K/uL RBC 4.29 L (4.50-5.90) M/uL Hgb 13.0 (13.0-17.0) g/dL Hct 38.6 (38.0-50.0) % MCV 90.0 (80.0-98.0) fL MCH 30.3 (27.0-32.0) pg MCHC 33.7 (31.0-37.0) g/dL RDW Std Deviation 45.9 (28.0-62.0) fl RDW Coeff of Yaima 14 (11.0-15.0) % Plt Count 296 (150-400) K/uL MPV 9.90 (7.40-12.00) fL Add Manual Diff YES Neutrophils % (Manual) 72 (48.0-80.0) % Band Neutrophils % 12 % Lymphocytes % (Manual) 8 L (16.0-40.0) % Monocytes % (Manual) 8 (0.0-15.0) % Nucleated RBC % 0.0 /100WBC Absolute Seg Neuts 3.4 (1.4-5.7) Band Neutrophils # 0.6 Lymphocytes # (Manual) 0.4 L (0.6-2.4) Monocytes # (Manual) 0.4 (0.0-0.8) Nucleated RBCs # 0 K/uL Sodium 136 (136-148) mmol/L Potassium 3.8 (3.5-5.1) mmol/L Chloride 97 L (98-107) mmol/L Carbon Dioxide 29.9 (21.0-32.0) mmol/L BUN 7 (7.0-18.0) mg/dL Creatinine 0.6 L (0.8-1.3) mg/dL Est Cr Clr Drug Dosing 113.31 mL/min Estimated GFR (MDRD) > 60.0 ml/min Glucose 93 (74-106) mg/dL Calcium 9.1 (8.5-10.1) mg/dL Phosphorus 3.0 (2.6-4.7) mg/dL Magnesium 1.7 L (1.8-2.4) mg/dL Total Bilirubin 0.5 (0.2-1.0) mg/dL AST 20 (15-37) IU/L ALT 17 (14-63) IU/L Alkaline Phosphatase 63 (46-116) U/L Total Protein 7.2 (6.4-8.2) g/dL Albumin 2.3 L (3.4-5.0) g/dL Globulin 4.9 H (2.6-4.0) g/dL Albumin/Globulin Ratio 0.5 L (0.9-1.6) Lipase 39 L (73-393) U/L Meds: Medications Discontinued Medications Generic Name Dose Route Start Last Admin Trade Name Freq PRN Reason Stop Dose Admin Sodium Chloride 1,000 mls @ 1,000 mls/hr 05/21/21 11:40 05/21/21 11:42 Normal Saline IV 05/21/21 12:39 1,000 mls/hr .Bolus ONE Administration - Re-Assessments/Exams Free Text/Narrative Re-Assessment/Exam: 05/21/21 13:40 She is on nasal cannula still satting well patient still looks well. We did speak to Dr. Denton who is Dr. Garay partner in [facility] also talked to the fusion nurse at the oncology clinic here made them both aware of the patient's presentation they will call patient to follow-up with patient this week. Departure - Departure Time of Disposition: 13:40 Disposition: Home, Self-Care 01 Condition: Good Clinical Impression: Post chemo evaluation - Discharge Information *PRESCRIPTION DRUG MONITORING PROGRAM REVIEWED*: Not Applicable *COPY OF PRESCRIPTION DRUG MONITORING REPORT IN PATIENT BIBIANA: Not Applicable Instructions: Managing Chemotherapy Side Effects, Adult Referrals: PCP,None [Primary Care Provider] - Forms: ED Department Discharge Additional Instructions: The following information is given to patients seen in the emergency department who are being discharged to home. This information is to outline your options for follow-up care. We provide all patients seen in our emergency department with a follow-up referral. The need for follow-up, as well as the timing and circumstances, are variable depending upon the specifics of your emergency department visit. If you don't have a primary care physician on staff, we will provide you with a referral. We always advise you to contact your personal physician following an emergency department visit to inform them of the circumstance of the visit and for follow-up with them and/or the need for any referrals to a consulting specialist. The emergency department will also refer you to a specialist when appropriate. This referral assures that you have the opportunity for follow-up care with a specialist. All of these measure are taken in an effort to provide you with optimal care, which includes your follow-up. Under all circumstances we always encourage you to contact your private physician who remains a resource for coordinating your care. When calling for follow-up care, please make the office aware that this follow-up is from your recent emergency room visit. If for any reason you are refused follow-up, please contact the [facility] Emergency Department at and asked to speak to the emergency department charge nurse. Please follow up with your primary care physician. If you do not have a primary care physician, see below: [facility] [address] [place] [id number] [facility] [address] [place] [id number] [facility] [address] [place] [id number] You are seen today for nausea vomiting also raspy voice. Your airway was clear your oxygen level was good on the nasal cannula. We gave you a liter of fluids was made you feel better from a hydration standpoint. We also spoke to your oncologist and his infusion nurse and I will be calling this week to obtain follow-up appointment. If you have any other concerning signs or symptoms please return to the ED immediately. Sepsis Event Note (ED) - Evaluation Sepsis Screening Result: No Definite Risk - Focused Exam Vital Signs: Vital Signs Temp Pulse Resp BP Pulse Ox 05/21/21 13:00 84 18 116/73 97 05/21/21 12:06 98.2 F 82 18 120/72 98 05/21/21 11:09 98.2 F 82 18 130/82 98 05/21/21 10:29 97.6 F 113 H 18 118/76 97 - Assessment/Plan Plan: Patient is a 65-year-old male with history of lung cancer recently started on chemo again presents today with nausea vomiting diarrhea. Patient is protecting airway satting 87% on nasal cannula which is baseline. Will get basic labs and IV fluids and reassess.
--- NOTE | 2021-05-21 11:25 | CR ---
INDICATION: Lung cancer. Recent chemotherapy. TECHNIQUE: Upright portable AP image of the chest. COMPARISON: 05/08/2021. FINDINGS: No obvious change, allowing for differences in positioning and exposure. Right-sided volume loss with dense medial opacity. Opacity in the mid to inferior left lung, greatest in the perihilar region. Heart size is grossly normal. Pulmonary veins normal in caliber. Port-A-Cath, as before. No significant bony abnormality. IMPRESSION: No significant change. Dictated by Josue Newsome MD @ 05/21/2021 11:23:23 AM (Electronically Signed)
[2021-05-21 11:34] LABS: BLOOD UREA NITROGEN,BUN 7 mg/dL (7.0-18.0); CARBON DIOXIDE,CO2 29.9 mmol/L (21.0-32.0); CHLORIDE,CL 97 mmol/L (98-107); GLUCOSE RANDOM 93 mg/dL (74-106); LIPASE 39 U/L (73-393); POTASSIUM,K 3.8 mmol/L (3.5-5.1); SODIUM,NA 136 mmol/L (136-148)
[2021-05-21] MEDS ORDERED: Sodium Chloride 0.9% 1,000 ML IV ONE (11:40)
== END 2021-05-21 14:09 | disposition home or self-care (01) ==
LOC: MW.ED 10:27
DX: Z08 Encounter for follow-up examination after completed treatment for malignant neoplasm (principal); R00.0 Tachycardia, unspecified; J44.9 Chronic obstructive pulmonary disease, unspecified; Z72.0 Tobacco use; Z79.899 Other long term (current) drug therapy
CPT/HCPCS: 36415; 71045; 80053; 83690; 83735; 84100; 85025; 93005; 99284; J7030

== ENCOUNTER 2021-06-29 11:25 | Emergency (ER) | payer OTHER ==
[~2021-06-29 11:25] MED LIST: Etomidate 2 MG/ML 20 ML SDV IVPUSH ONE; Succinylcholine 200 MG/10 ML MDV ONE
[2021-06-29] MEDS ORDERED: Sodium Chloride 0.9% 2.5 ML Syringe FLUSH PRN (11:35)
[2021-06-29] MEDS ORDERED: Sodium Chloride 0.9% 10 ML Syringe FLUSH PRN (11:35)
[2021-06-29] MEDS ORDERED: Albuterol/Ipratropium 3.0-0.5 MG/3 ML Neb Soln NEB ONE ×4 (11:36→20:38)
[2021-06-29] MEDS ORDERED: methylPREDNISolone Sodium Succinate 125 MG/2 ML SDV IVPUSH ONE ×2 (11:36→20:38)
--- NOTE | 2021-06-29 11:53 | EDM.PDOC ---
<Darinel Wood - Last Filed: 06/29/21 18:41> ED HPI GENERAL MEDICAL PROBLEM - General Chief Complaint: Respiratory Problem Stated Complaint: BREATHING PROBLEM Time Seen by Provider: 06/29/21 11:26 - History of Present Illness INITIAL COMMENTS - FREE TEXT/NARRATIVE: 66-year-old male history of COPD history of lung cancer last got chemo this past Thursday presenting with respiratory distress. Patient initially arrived unresponsive. Oxygen was less than 60. Patient did regain consciousness on nonrebreather he stated that he is felt quite poorly for the last month. However he developed more trouble breathing starting last night. He is on oxygen at baseline. He reports a mild cough. Further history limited by clinical condition. - Related Data Allergies Allergy/AdvReac Type Severity Reaction Status Date / Time No Known Allergies Allergy Verified 06/29/21 11:43 Home Meds: Home Meds Albuterol Sulfate [Albuterol Sulfate HFA] 1 - 2 puff INH Q4H PRN 11/01/20 [History] Budesonide/Formoterol Fumarate [Symbicort 80-4.5 MCG] 2 puff IH BID 11/01/20 [History] guaiFENesin [Mucinex] 200 mg PO TID PRN 11/01/20 [History] Betamethasone/Propylene Glyc [Betamethasone DP Aug 0.05%] 1 dose TOP BID 05/08/21 [History] Folic Acid 1 tab PO DAILY 05/08/21 [History] Ondansetron [Zofran Odt] 1 tab PO Q8H PRN 05/08/21 [History] Prochlorperazine Maleate [Compazine] 1 tab PO TID PRN 05/08/21 [History] buPROPion [Wellbutrin SR] 1 tab PO BID 05/08/21 [History] predniSONE [Prednisone] 40 mg PO DAILY 4 Days #8 tablet 05/08/21 [Rx] Past Medical History HEENT History: Reports: None Cardiovascular History: Reports: None Respiratory History: Reports: COPD, Other (See Below) Other Respiratory History: metastatic lung adenocarcinoma, [id number] Gastrointestinal History: Reports: None Genitourinary History: Reports: None Musculoskeletal History: Reports: None Neurological History: Reports: None Psychiatric History: Reports: None Endocrine/Metabolic History: Reports: None Hematologic History: Reports: Other (See Below) Other Hematologic History: Vitamin D Deficency Immunologic History: Reports: None Oncologic (Cancer) History: Reports: None Dermatologic History: Reports: Eczema - Infectious Disease History Infectious Disease History: Reports: Chicken Pox, Measles, Mumps - Past Surgical History Head Surgeries/Procedures: Reports: None HEENT Surgical History: Reports: None Cardiovascular Surgical History: Reports: None Respiratory Surgical History: Reports: None GI Surgical History: Reports: None Male Surgical History: Reports: None Endocrine Surgical History: Reports: None Neurological Surgical History: Reports: None Musculoskeletal Surgical History: Reports: None Oncologic Surgical History: Reports: None Dermatological Surgical History: Reports: None Social & Family History - Family History Family Medical History: No Pertinent Family History - Caffeine Use Caffeine Use: Reports: None ED ROS GENERAL - Review of Systems Review Of Systems: Unable To Obtain Reason Not Obtained: Clinical condition ED EXAM, GENERAL - Physical Exam Exam: See Below Free Text/Narrative:: General Appearance: Severe respiratory distress, cyanotic Skin: Cyanotic HEENT: Normocephalic/atraumatic, sclera anicteric, mucous membranes dry Neck: Normal range of motion Chest and Lungs: Poor air movement with diffuse biphasic wheezing Cardiovascular: Regular rate and rhythm, no lower extremity edema Abdomen: Soft, non-tender Back: Normal Musculoskeletal: No edema or tenderness Neurologic: Awake, alert, no obvious deficits, moving all extremities (after O2 applied) #1 Interpretation EKG Date: 06/29/21 Time: 11:49 EKG Interpretation Comments: Sinus rhythm likely biatrial enlargement some artifact is noted there is minimal ST elevation of less than 1 mm in V1 and V2, there is some reciprocal depression in lead III but no other ST elevations or depressions. This could represent ischemia but does not meet STEMI criteria Departure - Departure Disposition: DC/Tfer to [facility] 02 Clinical Impression: Acute respiratory failure with hypoxia - Discharge Information Referrals: PCP,None [Primary Care Provider] - Forms: ED Department Discharge Critical Care Note - Critical Care Note Total Time (mins): 120 Comments: Patient required immediate evaluation for stabilization of his impending respiratory failure. He required complex decision making related to the his multiple lab abnormalities and multiple other medical problems. - Assessment/Plan Assessment:: 66-year-old male presents in profound respiratory distress. Patient with near respiratory failure on arrival with oxygen less than 60. Nonrebreather was applied patient's oxygen actually rapidly came back up to normal and patient regained consciousness. He is now awake and alert and is able to answer questions. However he still has significantly increased work of breathing with minimal to moderate air movement. Patient confirmed to me verbally that he is full code. I would like all appropriate measures taken. Patient will be placed on BiPAP he will be given 125 of Solu-Medrol he will be given a DuoNeb through the BiPAP machine. If he continues to improve he may be safe to remain on BiPAP if not he will require intubation. I would favor profound COPD exacerbation but pneumonia is a consideration PE is felt less likely given the significant findings on his pulmonary exam. ACS is possible but felt less likely now the patient is awake he denies any chest pain. Other etiologies and symptoms well. Patient without history of heart failure no clinical signs of heart failure. Chest x-ray CBC CMP VBG, BNP, troponin, chest x-ray all remain pending at this time. 1205: VBG shows profound respiratory acidosis which is consistent with his clinical presentation. 1215: Respiratory status improving somewhat continues to have diffuse coarse significant wheezing and increased work of breathing. We will do second DuoNeb. Oxygen remained stable mental status remains good. 1217: White blood cell count dramatically elevated at 32. This could be related to his cancer or to any Neupogen he may have received. But he had no explicit records of this and given his critical illness blood cultures and antibiotics added in case this does represent severe sepsis. Continue to await lactic acid result. 1225: Tidal volumes now reliably in the upper 300s which is a significant improvement from the lower 200s that he was when he was initially placed on the BiPAP. 2nd Duoneb just started, pt now down to FiO2 of 50%, saturation remains 98-99%. Pt is on 3L NC at baseline. Chest x-ray is primarily stable but there is a possible increase in mass or infiltrate in the left lower lobe according to radiology. 1235: Lactic acid just over 430/kg of fluid ordered this will be 1920 mL patient ordered for 2 L of normal saline. 1400: Pt's TV now in the mid to upper 200's despite increasing his pressure support. He states that he feels very tired. I don't think he is safe to remain on the BiPaP at this point. After additional discussion with the patient and his brother the patient will be intubated for respiratory failure. 1435: Pt intubated without complication. No hypoxia or hypotension. I spoke to [facility] in [place] and they said that the ICU was on admission advisory and recommended discussion with the [facility]. I spoke to them and they will work on bed placement. 1800: [facility] contacted again. They are continuing to make phone calls and work on bed placement for this patient. 1830: VBG shows resolution of the patient's acidosis and improvement of his CO2 and O2. Current vent settings felt appropriate for now. Pt signed out to Dr. Huerta pending final disposition. <Jerrod Huerta - Last Filed: 06/29/21 20:41> ED HPI GENERAL MEDICAL PROBLEM - History of Present Illness INITIAL COMMENTS - FREE TEXT/NARRATIVE: Patient was signed out to me by Dr. Wood at 7pm. I promptly performed a detailed physical examination and my examination was done after ED treatments we re initiated by the signout provider. Patient has been under the care of previous provider up until this point. Patient's vitals continue to remain stable. At this time we will attempt to find placement for patient given limited beds. We did contact over 30 hospitals in the state of [place], [place], [place], [place], [place], [place] all of which do not have any bed availability. We did contact [facility] and I did speak with Dr. Salas who accepted the patient for transfer. He recommended Solu-Medrol and continued treatment of COPD. I contacted patient's power of trade mark attorney his brother Caden and informed him of the bed availability. He was amenable to this plan. DISPOSITION: Patient was transferred via fixed wing to the [facility] CONDITION: Serious PROCEDURES: None FINAL IMPRESSION(S)/DIAGNOSES: 1. Acute on chronic hypoxic/hypercarbic respiratory failure secondary to COPD exacerbation versus left lower lung pneumonia 2. Acute lactic acidosis secondary to #1 Jerrod Huerta M.D. Course - Vital Signs Last Recorded V/S: Last Vital Signs Temp 35.9 C L 06/29/21 13:45 Pulse 98 06/29/21 18:55 Resp 20 06/29/21 18:55 BP 109/68 06/29/21 18:55 Pulse Ox 99 06/29/21 18:55 - Orders/Labs/Meds Orders: Active Orders 24 hr Category Date Time Status BIPAP Adult [RT BiPAP/CPAP] [RC] ASDIRECTED Care 06/29/21 11:37 Active Insert [place] Catheter [Insert Urinary Catheter] [OM.PC] Care 06/29/21 15:00 Ordered Q24H Mechanical Ventilation, ED [RT Ventilator ED, Adult] [ Care 06/29/21 14:38 Active RC] ASDIRECTED RASS Sedation Scale [RC] ASDIRECTED Care 06/29/21 14:30 Active RT Aerosol Therapy [RC] ASDIRECTED Care 06/29/21 11:37 Active RT Aerosol Therapy [RC] ASDIRECTED Care 06/29/21 12:10 Active RT Aerosol Therapy [RC] ASDIRECTED Care 06/29/21 17:59 Active RT Aerosol Therapy [RC] ASDIRECTED Care 06/29/21 20:38 Ordered Urinary Catheter Assessment [RC] ASDIRECTED Care 06/29/21 14:51 Active CULTURE BLOOD [BC] Stat Lab 06/29/21 11:35 Results CULTURE BLOOD [BC] Stat Lab 06/29/21 11:48 Results VANCOMYCIN TROUGH [CHEM] Stat Lab 06/30/21 12:00 Ordered Albuterol/Ipratropium [DuoNeb 3.0-0.5 MG/3 ML] Med 06/29/21 20:38 Once 3 ml NEB ONETIME ONE Sodium Chloride 0.9% [Normal Saline] 1,000 ml Med 06/29/21 12:45 Active IV ASDIRECTED Sodium Chloride 0.9% [Normal Saline] 1,000 ml Med 06/29/21 12:45 Active IV ASDIRECTED Sodium Chloride 0.9% [Saline Flush] Med 06/29/21 11:35 Active 10 ml FLUSH ASDIRECTED PRN Sodium Chloride 0.9% [Saline Flush] Med 06/29/21 11:35 Active 2.5 ml FLUSH ASDIRECTED PRN Vancomycin [Vancocin] 1 gm Med 06/29/21 13:00 Active Sodium Chloride 0.9% [Normal Saline AdvBag] 250 ml IV Q8H methylPREDNISolone Sod Succ [Solu-MEDROL] Med 06/29/21 20:38 Once 125 mg IVPUSH ONETIME ONE propofoL [Diprivan 100 ML] 100 ml Med 06/29/21 14:30 Active IV TITRATE Blood Culture x2 Reflex Set [OM.PC] Stat Oth 06/29/21 12:16 Ordered Desired Level of Sedation (RASS) [AST] Click to Edit Oth 06/29/21 14:30 Ordered Saline Lock Insert [OM.PC] Stat Oth 06/29/21 11:35 Ordered Medication Orders Sodium Chloride (Normal Saline) 1,000 mls @ 999 mls/hr IV ASDIRECTED HAILEY Last Infusion: 06/29/21 13:48 Dose: 999 mls/hr Documented by: Admin: 06/29/21 12:47 Dose: 999 mls/hr Documented by: ZEESHAN Sodium Chloride (Normal Saline) 1,000 mls @ 999 mls/hr IV ASDIRECTED HAILEY Last Admin: 06/29/21 13:56 Dose: 999 mls/hr Documented by: ZEESHAN Vancomycin HCl 1 gm/ Sodium (Chloride) 250 mls @ 250 mls/hr IV Q8H HAILEY Last Admin: 06/29/21 13:45 Dose: 250 mls/hr Documented by: ZEESHAN Propofol (Diprivan 100 Ml) 100 mls @ 1.917 mls/hr IV TITRATE HAILEY; Protocol Last Titration: 06/29/21 18:13 Dose: 20 mcg/kg/min, 7.668 mls/hr Documented by: Titration: 06/29/21 15:05 Dose: 10 mcg/kg/min, 3.834 mls/hr Documented by: Admin: 06/29/21 15:04 Dose: 5 mcg/kg/min, 1.917 mls/hr Documented by: ZEESHAN Sodium Chloride (Sodium Chloride 0.9% 10 Ml Syringe) 10 ml FLUSH ASDIRECTED PRN PRN Reason: Keep Vein Open Sodium Chloride (Sodium Chloride 0.9% 2.5 Ml Syringe) 2.5 ml FLUSH ASDIRECTED PRN PRN Reason: Keep Vein Open Labs: Laboratory Tests 06/29/21 06/29/21 06/29/21 Range/Units 11:35 11:35 11:35 WBC 32.52 H (4.0-11.0) K/uL RBC 4.34 L (4.50-5.90) M/uL Hgb 12.8 L (13.0-17.0) g/dL Hct 40.0 (38.0-50.0) % MCV 92.2 (80.0-98.0) fL MCH 29.5 (27.0-32.0) pg MCHC 32.0 (31.0-37.0) g/dL RDW Std Deviation 51.8 (28.0-62.0) fl RDW Coeff of Yaima 15 (11.0-15.0) % Plt Count 376 (150-400) K/uL MPV 9.70 (7.40-12.00) fL Add Manual Diff YES Neutrophils % (Manual) 89 H (48.0-80.0) % Band Neutrophils % 4 % Lymphocytes % (Manual) 5 L (16.0-40.0) % Monocytes % (Manual) 2 (0.0-15.0) % Nucleated RBC % 0.0 /100WBC Absolute Seg Neuts 28.9 H (1.4-5.7) Band Neutrophils # 1.3 Lymphocytes # (Manual) 1.6 (0.6-2.4) Monocytes # (Manual) 0.7 (0.0-0.8) Nucleated RBCs # 0 K/uL VBG pH 7.23 L (7.31-7.41) VBG pCO2 96 H (41-51) mmHG VBG pO2 41 mmHG VBG HCO3 40 H (23-28) mEq/L VBG Total CO2 37 H (24-29) mmol/L VBG Base Excess 8.3 H (-2.0-3.0) Sodium 129 L (136-148) mmol/L Potassium 3.7 (3.5-5.1) mmol/L Chloride 88 L (98-107) mmol/L Carbon Dioxide 37.9 H (21.0-32.0) mmol/L BUN 6 L (7.0-18.0) mg/dL Creatinine 0.6 L (0.8-1.3) mg/dL Est Cr Clr Drug Dosing TNP Estimated GFR (MDRD) > 60.0 ml/min Glucose 267 H (74-106) mg/dL Lactic Acid (0.4-2.0) mmol/L Calcium 8.1 L (8.5-10.1) mg/dL Total Bilirubin 0.4 (0.2-1.0) mg/dL AST 23 (15-37) IU/L ALT 23 (14-63) IU/L Alkaline Phosphatase 80 (46-116) U/L Troponin I < 0.050 (0.000-0.056) ng/mL B-Natriuretic Peptide (<100) PG/ML Total Protein 7.4 (6.4-8.2) g/dL Albumin 2.4 L (3.4-5.0) g/dL Globulin 5.0 H (2.6-4.0) g/dL Albumin/Globulin Ratio 0.5 L (0.9-1.6) Urine Color Urine Appearance Urine pH (5.0-8.0) Ur Specific [place] (1.001-1.035) Urine Protein (NEGATIVE) mg/dL Urine Glucose (UA) (NEGATIVE) mg/dL Urine Ketones (NEGATIVE) mg/dL Urine Occult Blood (NEGATIVE) Urine Nitrite (NEGATIVE) Urine Bilirubin (NEGATIVE) Urine Urobilinogen (<2.0) EU/dL Ur Leukocyte Esterase (NEGATIVE) Urine RBC (0-2/HPF) Urine WBC (0-5/HPF) Ur Epithelial Cells (NONE-FEW) Urine Bacteria (NEGATIVE) Urine Mucus (NONE-MOD) Urinalysis Comment SARS-CoV-2 RNA (WICHO) (NEGATIVE) 06/29/21 06/29/21 06/29/21 Range/Units 11:35 11:35 11:35 WBC (4.0-11.0) K/uL RBC (4.50-5.90) M/uL Hgb (13.0-17.0) g/dL Hct (38.0-50.0) % MCV (80.0-98.0) fL MCH (27.0-32.0) pg MCHC (31.0-37.0) g/dL RDW Std Deviation (28.0-62.0) fl RDW Coeff of Yaima (11.0-15.0) % Plt Count (150-400) K/uL MPV (7.40-12.00) fL Add Manual Diff Neutrophils % (Manual) (48.0-80.0) % Band Neutrophils % % Lymphocytes % (Manual) (16.0-40.0) % Monocytes % (Manual) (0.0-15.0) % Nucleated RBC % /100WBC Absolute Seg Neuts (1.4-5.7) Band Neutrophils # Lymphocytes # (Manual) (0.6-2.4) Monocytes # (Manual) (0.0-0.8) Nucleated RBCs # K/uL VBG pH (7.31-7.41) VBG pCO2 (41-51) mmHG VBG pO2 mmHG VBG HCO3 (23-28) mEq/L VBG Total CO2 (24-29) mmol/L VBG Base Excess (-2.0-3.0) Sodium (136-148) mmol/L Potassium (3.5-5.1) mmol/L Chloride (98-107) mmol/L Carbon Dioxide (21.0-32.0) mmol/L BUN (7.0-18.0) mg/dL Creatinine (0.8-1.3) mg/dL Est Cr Clr Drug Dosing Estimated GFR (MDRD) ml/min Glucose (74-106) mg/dL Lactic Acid 4.3 H* (0.4-2.0) mmol/L Calcium (8.5-10.1) mg/dL Total Bilirubin (0.2-1.0) mg/dL AST (15-37) IU/L ALT (14-63) IU/L Alkaline Phosphatase (46-116) U/L Troponin I (0.000-0.056) ng/mL B-Natriuretic Peptide 262 H (<100) PG/ML Total Protein (6.4-8.2) g/dL Albumin (3.4-5.0) g/dL Globulin (2.6-4.0) g/dL Albumin/Globulin Ratio (0.9-1.6) Urine Color Urine Appearance Urine pH (5.0-8.0) Ur Specific [place] (1.001-1.035) Urine Protein (NEGATIVE) mg/dL Urine Glucose (UA) (NEGATIVE) mg/dL Urine Ketones (NEGATIVE) mg/dL Urine Occult Blood (NEGATIVE) Urine Nitrite (NEGATIVE) Urine Bilirubin (NEGATIVE) Urine Urobilinogen (<2.0) EU/dL Ur Leukocyte Esterase (NEGATIVE) Urine RBC (0-2/HPF) Urine WBC (0-5/HPF) Ur Epithelial Cells (NONE-FEW) Urine Bacteria (NEGATIVE) Urine Mucus (NONE-MOD) Urinalysis Comment SARS-CoV-2 RNA (WICHO) NEGATIVE (NEGATIVE) 06/29/21 06/29/21 06/29/21 Range/Units 13:51 14:45 18:00 WBC (4.0-11.0) K/uL RBC (4.50-5.90) M/uL Hgb (13.0-17.0) g/dL Hct (38.0-50.0) % MCV (80.0-98.0) fL MCH (27.0-32.0) pg MCHC (31.0-37.0) g/dL RDW Std Deviation (28.0-62.0) fl RDW Coeff of Yaima (11.0-15.0) % Plt Count (150-400) K/uL MPV (7.40-12.00) fL Add Manual Diff Neutrophils % (Manual) (48.0-80.0) % Band Neutrophils % % Lymphocytes % (Manual) (16.0-40.0) % Monocytes % (Manual) (0.0-15.0) % Nucleated RBC % /100WBC Absolute Seg Neuts (1.4-5.7) Band Neutrophils # Lymphocytes # (Manual) (0.6-2.4) Monocytes # (Manual) (0.0-0.8) Nucleated RBCs # K/uL VBG pH 7.40 (7.31-7.41) VBG pCO2 57 H (41-51) mmHG VBG pO2 81 mmHG VBG HCO3 35 H (23-28) mEq/L VBG Total CO2 32 H (24-29) mmol/L VBG Base Excess 8.6 H (-2.0-3.0) Sodium (136-148) mmol/L Potassium (3.5-5.1) mmol/L Chloride (98-107) mmol/L Carbon Dioxide (21.0-32.0) mmol/L BUN (7.0-18.0) mg/dL Creatinine (0.8-1.3) mg/dL Est Cr Clr Drug Dosing Estimated GFR (MDRD) ml/min Glucose (74-106) mg/dL Lactic Acid 0.7 (0.4-2.0) mmol/L Calcium (8.5-10.1) mg/dL Total Bilirubin (0.2-1.0) mg/dL AST (15-37) IU/L ALT (14-63) IU/L Alkaline Phosphatase (46-116) U/L Troponin I (0.000-0.056) ng/mL B-Natriuretic Peptide (<100) PG/ML Total Protein (6.4-8.2) g/dL Albumin (3.4-5.0) g/dL Globulin (2.6-4.0) g/dL Albumin/Globulin Ratio (0.9-1.6) Urine Color YELLOW Urine Appearance CLEAR Urine pH 6.0 (5.0-8.0) Ur Specific [place] >= 1.030 (1.001-1.035) Urine Protein TRACE H (NEGATIVE) mg/dL Urine Glucose (UA) 100 H (NEGATIVE) mg/dL Urine Ketones NEGATIVE (NEGATIVE) mg/dL Urine Occult Blood NEGATIVE (NEGATIVE) Urine Nitrite NEGATIVE (NEGATIVE) Urine Bilirubin NEGATIVE (NEGATIVE) Urine Urobilinogen 0.2 (<2.0) EU/dL Ur Leukocyte Esterase NEGATIVE (NEGATIVE) Urine RBC 0-1 (0-2/HPF) Urine WBC 0-2 (0-5/HPF) Ur Epithelial Cells OCCASIONAL (NONE-FEW) Urine Bacteria RARE (NEGATIVE) Urine Mucus LIGHT (NONE-MOD) Urinalysis Comment SARS-CoV-2 RNA (WICHO) (NEGATIVE) Meds: Medications Generic Name Dose Route Start Last Admin Trade Name Freq PRN Reason Stop Dose Admin Sodium Chloride 1,000 mls @ 999 mls/hr 06/29/21 12:45 06/29/21 13:48 Normal Saline IV Infused ASDIRECTED HAILEY Infusion Sodium Chloride 1,000 mls @ 999 mls/hr 06/29/21 12:45 06/29/21 13:56 Normal Saline IV 999 mls/hr ASDIRECTED HAILEY Administration Vancomycin HCl 1 gm/ Sodium 250 mls @ 250 mls/hr 06/29/21 13:00 06/29/21 13:45 Chloride IV 250 mls/hr Q8H HAILEY Administration Propofol 100 mls @ 1.917 mls/hr 06/29/21 14:30 06/29/21 18:13 Diprivan 100 Ml IV 20 mcg/kg/min TITRATE HAILEY 7.668 mls/hr Titration Protocol 5 MCG/KG/MIN Sodium Chloride 10 ml 06/29/21 11:35 Sodium Chloride 0.9% 10 Ml Syringe FLUSH ASDIRECTED PRN Keep Vein Open Sodium Chloride 2.5 ml 06/29/21 11:35 Sodium Chloride 0.9% 2.5 Ml Syringe FLUSH ASDIRECTED PRN Keep Vein Open Discontinued Medications Generic Name Dose Route Start Last Admin Trade Name Freq PRN Reason Stop Dose Admin Albuterol/Ipratropium 3 ml 06/29/21 11:36 06/29/21 11:43 Albuterol/Ipratropium 3.0-0.5 Mg/3 Ml Neb Soln NEB 06/29/21 11:37 3 ml ONETIME ONE Administration Albuterol/Ipratropium 3 ml 06/29/21 12:10 06/29/21 12:16 Albuterol/Ipratropium 3.0-0.5 Mg/3 Ml Neb Soln NEB 06/29/21 12:11 3 ml ONETIME ONE Administration Albuterol/Ipratropium 3 ml 06/29/21 17:58 06/29/21 18:18 Albuterol/Ipratropium 3.0-0.5 Mg/3 Ml Neb Soln NEB 06/29/21 17:59 3 ml ONETIME ONE Administration Albuterol/Ipratropium 3 ml 06/29/21 20:38 Albuterol/Ipratropium 3.0-0.5 Mg/3 Ml Neb Soln NEB 06/29/21 20:39 ONETIME ONE Etomidate 20 mg 06/29/21 14:04 06/29/21 14:15 Etomidate 2 Mg/Ml 20 Ml Sdv IVPUSH 06/29/21 14:05 20 mg ONETIME ONE Administration Cefepime HCl 2 gm/ Premix 50 mls @ 100 mls/hr 06/29/21 12:16 06/29/21 12:48 IV 06/29/21 12:45 100 mls/hr ONETIME ONE Administration Propofol Confirm 06/29/21 14:26 06/29/21 15:02 Diprivan 100 Ml Administered 06/29/21 14:27 Not Given Dose 100 mls @ as directed .ROUTE .STK-MED ONE Methylprednisolone Sodium Succinate 125 mg 06/29/21 11:36 06/29/21 11:42 Methylprednisolone Sodium Succinate 125 Mg/2 Ml Sdv IVPUSH 06/29/21 11:37 125 mg ONETIME ONE Administration Methylprednisolone Sodium Succinate 125 mg 06/29/21 20:38 Methylprednisolone Sodium Succinate 125 Mg/2 Ml Sdv IVPUSH 06/29/21 20:39 ONETIME ONE Succinylcholine Chloride 150 mg 06/29/21 14:04 06/29/21 14:16 Succinylcholine Chloride 200 Mg/10 Ml Syr IV 06/29/21 14:05 150 mg ONETIME ONE Administration Vancomycin HCl 1 dose 06/29/21 12:16 06/29/21 15:08 Pharmacy To Dose - Vancomycin .XX 06/29/21 12:17 Not Given ONETIME ONE Departure - Departure Time of Disposition: 20:40 Condition: Serious Sepsis Event Note (ED) - Focused Exam Vital Signs: Vital Signs Temp Pulse Resp BP Pulse Ox 06/29/21 18:55 98 20 109/68 99 06/29/21 14:30 96 16 105/65 99 06/29/21 14:18 102 H 26 H 129/74 100 06/29/21 13:45 35.9 C L 94 28 H 143/80 H 95 06/29/21 12:51 102 H 26 H 127/82 96 06/29/21 11:50 98 26 H 135/84 98 06/29/21 11:30 98 06/29/21 11:25 36.4 C 102 H 10 L 137/77 25 L - My Orders Last 24 Hours: My Active Orders 06/29/21 20:38 RT Aerosol Therapy [RC] ASDIRECTED Albuterol/Ipratropium [DuoNeb 3.0-0.5 MG/3 ML] 3 ml NEB ONETIME ONE methylPREDNISolone Sod Succ [Solu-MEDROL] 125 mg IVPUSH ONETIME ONE - Assessment/Plan Last 24 Hours: My Active Orders 06/29/21 20:38 RT Aerosol Therapy [RC] ASDIRECTED Albuterol/Ipratropium [DuoNeb 3.0-0.5 MG/3 ML] 3 ml NEB ONETIME ONE methylPREDNISolone Sod Succ [Solu-MEDROL] 125 mg IVPUSH ONETIME ONE
[2021-06-29] MEDS ORDERED: Cefepime 2 GM in Premix Bag 1 BAG IV ONE (12:16)
--- NOTE | 2021-06-29 12:18 | CR ---
INDICATION: SOB Comparison: 05/21/21 Findings: Single view of the chest. Similar appearing perihilar masses and opacities, in a patient with known malignancy. Possible increased infiltrate or mass left lower lobe. Heart size within normal. No overt pulmonary edema. Port. Dictated by: Ines Graves MD @ 06/29/2021 12:17:39 (Electronically Signed)
[2021-06-29 12:24] LABS: BLOOD UREA NITROGEN,BUN 6 mg/dL (7.0-18.0); CARBON DIOXIDE,CO2 37.9 mmol/L (21.0-32.0); CHLORIDE,CL 88 mmol/L (98-107); GLUCOSE RANDOM 267 mg/dL (74-106); POTASSIUM,K 3.7 mmol/L (3.5-5.1); SODIUM,NA 129 mmol/L (136-148)
[2021-06-29] MEDS ORDERED: Sodium Chloride 0.9% 1,000 ML IV SCH (12:45)
[2021-06-29] MEDS: Sodium Chloride 0.9% 1,000 ML IV SCH ×2 (12:47→13:55)
[2021-06-29] MEDS ORDERED: Etomidate 2 MG/ML 20 ML SDV IVPUSH ONE (14:04)
[2021-06-29] MEDS ORDERED: propofoL 100 ML ONE ×2 (14:26→21:09)
[2021-06-29] MEDS ORDERED: propofoL 100 ML IV SCH ×2 (14:30→21:45)
--- NOTE | 2021-06-29 15:18 | CR ---
Indication: Status post intubation. Technique: AP portable view of the chest. Comparison: Study from earlier today. The current study is dated 1453 hours. Findings: An ET tube is identified with the tip 5.9 cm superior to level of nav. A right-sided Port-A-Cath is identified. A defibrillator pad is identified overlying the chest on the right. The heart is normal in size. Patchy bilateral opacities are identified. The costophrenic angles are not included on the study. No pneumothorax is seen. Impression: Increasing bilateral patchy opacities. Intubation. Dictated by Sherri Forrest MD @ 06/29/2021 3:18:08 PM (Electronically Signed)
== END 2021-06-29 22:41 ==
LOC: MW.ED 11:25
DX: J96.01 Acute respiratory failure with hypoxia (principal); E87.2 Acidosis; J44.9 Chronic obstructive pulmonary disease, unspecified; Z79.899 Other long term (current) drug therapy; Z20.822 Contact with and (suspected) exposure to COVID-19
CPT/HCPCS: 31500; 36415; 51702; 71045; 80053; 81001; 82803; 83605; 83880; 84484; 85025; 87040; 87635; 93005; 96365; 96367; 96375; 96376; 99291; 99292; J0330; J0692; J2704; J2930; J3370; J3490; J7030; J7050; J7620-GY; U0002